=== PATIENT | male | born 1990 | race Caucasian/White ===

== ENCOUNTER 2019-11-12 11:24 | Emergency (ER) | payer SELFPAY ==
--- NOTE | 2019-11-12 12:14 | EDPHYS ---
Physician Documentation [facility] Name: Ceasar White Age: 29 yrs Sex: Male : 1990 Arrival Date: 11/12/2019 Time: 11:27 Bed 26 Private MD: ED Physician Mahnaz Sewell HPI: 11/12 12:10 This 29 yrs old Male presents to ER via Ambulatory with complaints of STD ma2 Exposure. 12:10 genital rash. Onset: The symptoms/episode began/occurred gradually, 1 week(s) ago. ma2 Severity of symptoms: At their worst the symptoms were very mild in the emergency department the symptoms are unchanged. The patient has not experienced similar symptoms in the past. Historical: - Allergies: 11:44 No Known Allergies; hb - Home Meds: 11:44 None [Active]; hb - PMHx: 11:44 None; hb - PSHx: 11:44 None; hb - Immunization history:: Adult Immunizations up to date. - Social history:: Smoking status: Patient uses tobacco products, smokes one-half pack cigarettes per day, Patient uses Patient/guardian denies using alcohol, street drugs, The patient lives with family. - Ebola Screening: : No symptoms or risks identified at this time. - Family history:: not pertinent. ROS: 12:10 Constitutional: Negative for fever, chills, and weight loss. ma2 12:10 All other systems are negative. Exam: 12:10 Constitutional: This is a well developed, well nourished patient who is awake, alert, ma2 and in no acute distress. Head/Face: Normocephalic, atraumatic. Chest/axilla: Normal chest wall appearance and motion. Nontender with no deformity. No lesions are appreciated. Cardiovascular: Regular rate and rhythm with a normal S1 and S2. No gallops, murmurs, or rubs. Normal PMI, no JVD. No pulse deficits. Respiratory: Lungs have equal breath sounds bilaterally, clear to auscultation and percussion. No rales, rhonchi or wheezes noted. No increased work of breathing, no retractions or nasal flaring. Abdomen/GI: Soft, non-tender, with normal bowel sounds. No distension or tympany. No guarding or rebound. No evidence of tenderness throughout. Male : vesical rash, painfull, Normal genitalia with no discharge . Skin: Warm, dry with normal turgor. Normal color with no rashes, no lesions, and no evidence of cellulitis. MS/ Extremity: Pulses equal, no cyanosis. Neurovascular intact. Full, normal range of motion. Neuro: Awake and alert, GCS 15, oriented to person, place, time, and situation. Cranial nerves II-XII grossly intact. Motor strength 5/5 in all extremities. Sensory grossly intact. Cerebellar exam normal. Normal gait. Vital Signs: 11:43 BP 154 / 90; Pulse 86; Resp 16; Temp 97.7; Pulse Ox 100% on R/A; Weight 90.72 kg; hb Height 5 ft. 10 in. (177.80 cm); Pain 4/10; 12:24 BP 145 / 80; Pulse 86; Resp 18; Temp 98; Pulse Ox 100% on R/A; Pain 2/10; mg2 11:43 Body Mass Index 28.70 (90.72 kg, 177.80 cm) hb MDM: 11:51 Patient medically screened. ma2 12:10 Differential Diagnosis HSV, unlikely chramydia or gonorrhea . Data reviewed: vital ma2 signs, nurses notes. Counseling: I had a detailed discussion with the patient and/or guardian regarding: the historical points, exam findings, and any diagnostic results supporting the discharge/admit diagnosis, the presence of at least one elevated blood pressure reading (>120/80) during this emergency department visit. Counseling: I had a detailed discussion with the patient and/or guardian regarding: the need for outpatient follow up. Medical screen evaluation completed. [facility] emergency medical condition absent. Administered Medications: No medications were administered Disposition: 11/12/19 12:14 Discharged to Home. 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 - Condition is Stable. - Discharge Instructions: Genital Herpes. - Prescriptions for Acyclovir 200 mg Oral Capsule - take 1 capsule by ORAL route 5 times per day; 50 capsule. - Medication Reconciliation Form, Thank You Letter, Antibiotic Education, Prescription Opioid Use form. - Follow up: Private Physician; When: Tomorrow; Reason: Continuance of care. Signatures: Catie Croft RN RN Mahnaz Sewell MD MD id2 Gardose, Armando, RN RN mg2 Corrections: (The following items were deleted from the chart) 12:24 12:14 11/12/2019 12:14 Discharged to Home. Impression: Herpesviral infection of mg2 genitalia and urogenital tract. Condition is Stable. Discharge Instructions: Genital Herpes. Prescriptions for Acyclovir 200 mg Oral Capsule - take 1 capsule by ORAL route 5 times per day; 50 capsule. and Forms are Medication Reconciliation Form, Thank You Letter, Antibiotic Education, Prescription Opioid Use. Follow up: Private Physician; When: Tomorrow; Reason: Continuance of care. ma2
--- NOTE | 2019-11-12 12:14 | ER ---
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 Transition of care: patient was hb not received from another setting of care. Onset of symptoms was November 11, 2019. Risk Assessment: Do you want to hurt yourself or someone else? Patient reports no desire to harm self or others. Care prior to arrival: None. 11:42 Method Of Arrival: Ambulatory hb 11:42 Acuity: LG 4 hb 12:17 Initial Sepsis Screen: Does the patient meet any 2 criteria? No. Patient's initial mg2 sepsis screen is negative. Does the patient have a suspected source of infection? No. Patient's initial sepsis screen is negative. Historical: - Allergies: 11:44 No Known Allergies; hb - Home Meds: 11:44 None [Active]; hb - PMHx: 11:44 None; hb - PSHx: 11:44 None; hb - Immunization history:: Adult Immunizations up to date. - Social history:: Smoking status: Patient uses tobacco products, smokes one-half pack cigarettes per day, Patient uses Patient/guardian denies using alcohol, street drugs, The patient lives with family. - Ebola Screening: : No symptoms or risks identified at this time. - Family history:: not pertinent. Screenin:17 Abuse screen: Denies threats or abuse. Denies injuries from another. Nutritional mg2 screening: No deficits noted. Tuberculosis screening: No symptoms or risk factors identified. Fall Risk None identified. Assessment: 12:16 General: Appears in no apparent distress. comfortable, Behavior is calm, cooperative. mg2 Pain: Complains of pain in penis. Neuro: Level of Consciousness is awake, alert, obeys commands, Oriented to person, place, time, situation. Cardiovascular: Capillary refill < 3 seconds Patient's skin is warm and dry. Respiratory: Airway is patent Respiratory effort is even, unlabored, Respiratory pattern is regular, symmetrical. GI: No signs and/or symptoms were reported involving the gastrointestinal system. : Reports pain in the penile area. EENT: No signs and/or symptoms were reported regarding the EENT system. Derm: Skin is intact, is healthy with good turgor, Skin is pink, warm \T\ dry. normal. Musculoskeletal: Circulation, motion, and sensation intact. Capillary refill < 3 seconds. Vital Signs: 11:43 BP 154 / 90; Pulse 86; Resp 16; Temp 97.7; Pulse Ox 100% on R/A; Weight 90.72 kg; hb Height 5 ft. 10 in. (177.80 cm); Pain 4/10; 12:24 BP 145 / 80; Pulse 86; Resp 18; Temp 98; Pulse Ox 100% on R/A; Pain 2/10; mg2 11:43 Body Mass Index 28.70 (90.72 kg, 177.80 cm) hb ED Course: 11:27 Patient arrived in ED. mr 11:43 Triage completed. hb 11:43 Arm band placed on. 11:51 Mahnaz Sewell MD is Attending Physician. [facility] 12:16 Armando Donis, OLGA is Primary Nurse. mg2 12:17 Patient has correct armband on for positive identification. mg2 12:17 No provider procedures requiring assistance completed. Patient did not have IV access mg2 during this emergency room visit. Administered Medications: No medications were administered Outcome: 12:14 Discharge ordered by . ma2 12:24 Discharged to home ambulatory. mg2 12:24 Condition: stable 12:24 Discharge instructions given to patient, Instructed on discharge instructions, follow up and referral plans. medication usage, Demonstrated understanding of instructions, follow-up care, medications, Prescriptions given X 1. 12:24 Patient left the ED. mg2 Signatures: Mara Quevedo CroftCatie, RN RN Mahnaz Sewell MD MD al2 Armando Donis RN RN mg2
[2019-11-12 12:38] VITALS: O2SAT 100
[2019-11-12 12:40] VITALS: BP 145/80; TEMP 98
== END 2019-11-12 12:24 | disposition home or self-care (01) ==
LOC: ER 11:24
DX: A60.00 Herpesviral infection of urogenital system, unspecified (principal); F17.210 Nicotine dependence, cigarettes, uncomplicated
CPT/HCPCS: 99282

== ENCOUNTER 2020-03-05 | Emergency (ER) | payer SELFPAY | END 2020-03-06 00:37 | disposition home or self-care (01) | CPT/HCPCS: 96372; 99283 ==